=== PATIENT | male | born 1945 | race Caucasian/White ===

== ENCOUNTER 2017-03-19 22:01 | Inpatient (IN) | payer MEDICARE, MEDICAID ==
[~2017-03-19] VITALS: Ht 170.2 cm; Wt 76.3 kg
--- NOTE | 2017-03-19 22:05 | NUR ---
PT BIBRA FROM SNF TO ER BED 09. PER REPORT, HERE FPOR AGITATION, TRYING TO HIT FACILITY STAFF. GOWNED AND PLACED ON MONITOR. NOTED TO BE TACHY GLOST PLACER. PT APPEARS CONFUSED. AWAITING MD ARRIETA.
[2017-03-19] MEDS ORDERED: LACT10SO6 PO (22:22)
[2017-03-19] MEDS ORDERED: PRED5DRO17 EACHEYE (22:22)
[2017-03-19] MEDS ORDERED: NA P133E RC (22:22)
[2017-03-19] MEDS ORDERED: CRAN450C PO (22:22)
[2017-03-19] MEDS ORDERED: DORZ10DR EACHEYE (22:22)
[2017-03-19] MEDS ORDERED: VITA1CAP9 PO (22:22)
[2017-03-19] MEDS ORDERED: BISA10SU8 PO (22:22)
[2017-03-19] MEDS ORDERED: IBUP-51 PO (22:22)
[2017-03-19] MEDS ORDERED: DOCU-270 PO (22:22)
[2017-03-19] MEDS ORDERED: TAMS-12 PO (22:22)
[2017-03-19] MEDS ORDERED: MAGN400O6 PO (22:22)
[2017-03-19] MEDS ORDERED: MULT1TAB11 PO (22:22)
[2017-03-19] MEDS ORDERED: QUET25TA PO (22:22)
[2017-03-19] MEDS ORDERED: ENOX80DI SQ (22:22)
[2017-03-19] MEDS ORDERED: CHOL100040 PO (22:22)
[2017-03-19] MEDS ORDERED: RIFA550T PO (22:22)
--- NOTE | 2017-03-19 22:25 | NUR ---
DIRECTOR SHOPPER MARKETING AT BEDSIDE FOR BLOOD DRAW.
[2017-03-19 22:40] LABS: BASOPHILS % (AUTO) 0.5 % (0.0-2.0); EOSINOPHILS # (AUTO) 0.1 /CMM (0.0-0.7); EOSINOPHILS % (AUTO) 2.4 % (0.0-6.0); HEMATOCRIT 37 % (39-51); HEMOGLOBIN 12.6 g/dL (13.5-17.5); LYMPHOCYTES # (AUTO) 1.8 /CMM (0.8-4.8); LYMPHOCYTES % (AUTO) 30.8 % (20.0-44.0); MEAN CORPUSCULAR HEMOGLOBIN 32 PG (26.0-33.0); MEAN CORPUSCULAR HGB CONC 34 g/dl (31.0-36.0); MEAN CORPUSCULAR VOLUME 93 fL (80-96); MONOCYTES # (AUTO) 0.5 /CMM (0.1-1.30); MONOCYTES % (AUTO) 8.8 % (2.0-12.0); NEUTROPHILS # (AUTO) 3.3 /CMM (1.8-8.9); NEUTROPHILS % (AUTO) 57.5 % (43.0-81.0); PLATELET COUNT (AUTO) 198 /CMM (150-450); WHITE BLOOD COUNT (AUTO) 5.8 K/uL (4.3-11.0)
--- NOTE | 2017-03-19 22:48 | NUR ---
DR STILL AT BEDSIDE FOR EVAL.
--- NOTE | 2017-03-19 22:50 | NUR ---
UNABLE TO PROVIDE URINE SAMPLE AT THIS TIME. NO IN AND OUT PER DR STILL.
[2017-03-19 22:51] LABS: CALCIUM, SERUM 8.6 mg/dL (8.5-10.1); CARBON DIOXIDE 27 mmol/L (21-32); CHLORIDE 105 mmol/L (98-107); CREATININE 0.8 mg/dL (0.6-1.3); GLUCOSE 110 mg/dL (74-106); POTASSIUM 4.1 mmol/L (3.5-5.1); SODIUM SERUM 142 mmol/L (136-145); UREA NITROGEN, BLOOD 9 mg/dL (7-18)
[2017-03-19 22:53] LABS: SERUM AMMONIA 14 umol/L (11-32)
[2017-03-19 22:56] LABS: INR 0.96 (0.87-1.13); PROTHROMBIN TIME 10.3 SECS (9.5-12.7)
[2017-03-19 22:59] LABS: TROPONIN I < 0.017 ng/mL (0.00-0.056)
[2017-03-19 23:00] LABS: ACETAMINOPHEN 0 ug/ml (10-30); ALCOHOL, BLOOD < 3 mg/dL (0-0); SALICYLATE < 0.2 mg/dL (2.8-20.0)
[2017-03-19 23:27] LABS: ALANINE AMINOTRANSFERASE 72 U/L (12-78); ALBUMIN 3.1 g/dL (3.4-5.0); ALKALINE PHOSPHATASE 200 U/L (46-116); ASPARTATE AMINOTRANSFERASE 55 U/L (15-37); BILIRUBIN,DIRECT 0.5 mg/dL (0.0-0.2); BILIRUBIN,TOTAL 0.7 mg/dL (0.2-1.0); TOTAL PROTEIN, SERUM 7.6 g/dL (6.4-8.2)
[2017-03-20] MEDS ORDERED: MORPHINE SULFATE INJ 4 MG/ML DISP.SYRIN ONE ×2 (00:51→01:56)
[2017-03-20] MEDS ORDERED: ONDANSETRON 4 MG TAB.RAPDIS ONE (00:52)
--- NOTE | 2017-03-20 01:08 | NUR ---
REPORT TO CHARGE NURSE JING FOR SHANA.
[2017-03-20] MEDS ORDERED: MORPHINE SULFATE INJ 2 MG/ML DISP.SYRIN SQ ONE (01:30)
[2017-03-20] MEDS ORDERED: ONDANSETRON 4 MG TAB.RAPDIS SL ONE (01:30)
[2017-03-20] MEDS ORDERED: HALOPERIDOL LACTATE INJ 5 MG/ML VIAL ONE (01:32)
[2017-03-20] MEDS ORDERED: ONDANSETRON HCL/PF 4 MG/2 ML VIAL ONE (01:56)
[2017-03-20] MEDS ORDERED: HALOPERIDOL LACTATE INJ 5 MG/ML VIAL IM ONE (02:00)
[2017-03-20] MEDS ORDERED: MORPHINE SULFATE INJ 2 MG/ML DISP.SYRIN IV ONE (02:30)
[2017-03-20] MEDS ORDERED: ONDANSETRON HCL/PF 4 MG/2 ML VIAL IV ONE (02:30)
--- NOTE | 2017-03-20 02:33 | NUR ---
RECEIVED REPORT FROM ER REGARDING NEW ADMISSION, AWAITING ARRIVAL IN UNIT, ROOM IS READY
[2017-03-20 03:22] VITALS: BP 133/70
[2017-03-20 03:30] VITALS: BP 133/82
[2017-03-20] MEDS ORDERED: ENOXAPARIN SODIUM 80 MG/0.8 ML DISP.SYRIN SQ SCH (05:00)
[2017-03-20] MEDS ORDERED: NA PHOS,M-B/NA PHOS,DI-BA 1 EA ENEMA RC PRN (05:00)
[2017-03-20] MEDS ORDERED: PERMETHRIN 5% CRM 60 GM TUBE TP ONE ×2 (05:00→05:20)
[2017-03-20] MEDS ORDERED: MAGNESIUM HYDROXIDE 30 ML UDC PO PRN (05:00)
[2017-03-20] MEDS ORDERED: BISACODYL SUPP (10 MG) 10 MG/SUPP.RECT SUPP.RECT RC PRN (05:00)
[2017-03-20] MEDS ORDERED: ACETAMINOPHEN 325 MG TABLET PO PRN (06:00)
[2017-03-20] MEDS ORDERED: ONDANSETRON HCL/PF 4 MG/2 ML VIAL IVP PRN (06:00)
[2017-03-20] MEDS ORDERED: TEMAZEPAM 15 MG CAPSULE PO PRN (06:00)
[2017-03-20] MEDS ORDERED: Z GUARD REMEDY 2 OZ OINT TP PRN (06:00)
[2017-03-20] MEDS ORDERED: ENOXAPARIN SODIUM 80 MG/0.8 ML DISP.SYRIN SQ ONE (06:21)
--- NOTE | 2017-03-20 06:53 | NUR ---
RN NOTES PT. ALERT AWAKE ALERT NO ACUTE DISTRESS NOTED ,PT. IN STABLE CONDITION , ALL NEEDS ATTENDED AND ANTICIPATED , ALL MEDS GIVEN PER MD ORDERS ,PT . INTERMITTENTLY EPISODE OF COMBATIVE , VITAL SIGNS IN S WNL ,WILL ENDORSE TO NEXT SHIFT FOR CONTINUITY OF CARE .
--- NOTE | 2017-03-20 07:30 | NUR ---
MS RN OPENING NOTE PATIENT IS ALERT AND ORIENTED x1. PERIODS OF CONFUSION. NO PAIN AT THIS TIME. NO SOB OR DISTRESS NOTED. CALL LIGHT WITHIN REACH. SAFETY MEASURES IMPLEMENTED. IV INTACT AND PATENT NO REDNESS OR SWELLING NOTED. PATIENT IS ON SOFT BILATERAL RESTRAINTS, OFFERED NURSING CARE NEEDS. PATIENT EASILY BECOMES AGITATED. WILL REORIENT. WILL CONTINUE TO MONITOR
[2017-03-20 07:48] LABS: BASOPHILS % (AUTO) 0.3 % (0.0-2.0); EOSINOPHILS # (AUTO) 0.2 /CMM (0.0-0.7); EOSINOPHILS % (AUTO) 2.5 % (0.0-6.0); HEMATOCRIT 37 % (39-51); HEMOGLOBIN 12.5 g/dL (13.5-17.5); LYMPHOCYTES # (AUTO) 2.3 /CMM (0.8-4.8); LYMPHOCYTES % (AUTO) 33.2 % (20.0-44.0); MEAN CORPUSCULAR HEMOGLOBIN 32 PG (26.0-33.0); MEAN CORPUSCULAR HGB CONC 34 g/dl (31.0-36.0); MEAN CORPUSCULAR VOLUME 94 fL (80-96); MONOCYTES # (AUTO) 0.5 /CMM (0.1-1.30); MONOCYTES % (AUTO) 7.8 % (2.0-12.0); NEUTROPHILS # (AUTO) 3.9 /CMM (1.8-8.9); NEUTROPHILS % (AUTO) 56.2 % (43.0-81.0); PLATELET COUNT (AUTO) 189 /CMM (150-450); RDW COEFFICIENT OF VARIATION 14.5 (11.5-15.0); RED BLOOD CELL COUNT(AUTO) 3.94 MIL/uL (4.5-6.0); WHITE BLOOD COUNT (AUTO) 6.9 K/uL (4.3-11.0)
[2017-03-20 08:00] VITALS: BP 107/72
[2017-03-20 08:13] LABS: CALCIUM, SERUM 8.6 mg/dL (8.5-10.1); CARBON DIOXIDE 28 mmol/L (21-32); CHLORIDE 106 mmol/L (98-107); CREATININE 0.7 mg/dL (0.6-1.3); GLUCOSE 86 mg/dL (74-106); POTASSIUM 4.5 mmol/L (3.5-5.1); SODIUM SERUM 142 mmol/L (136-145); UREA NITROGEN, BLOOD 8 mg/dL (7-18)
[2017-03-20 08:19] LABS: ALANINE AMINOTRANSFERASE 68 U/L (12-78); ALKALINE PHOSPHATASE 187 U/L (46-116); ASPARTATE AMINOTRANSFERASE 57 U/L (15-37); BILIRUBIN,TOTAL 0.8 mg/dL (0.2-1.0); MAGNESIUM 2.3 mg/dL (1.8-2.4); PHOSPHORUS 3.8 mg/dL (2.5-4.9); TOTAL PROTEIN, SERUM 7.3 g/dL (6.4-8.2)
[2017-03-20 08:26] LABS: CHOLESTEROL 143 mg/dL (<200); HDL CHOLESTEROL 28 mg/dL (40-60); LDL 84 mg/dL (0-99); THYROID STIMULATING HORMONE 0.569 uIU/mL (0.358-3.74); TRIGLYCERIDES 153 mg/dL (30-150)
[2017-03-20] MEDS: PANTOPRAZOLE 40 MG TABLET.DR PO SCH (08:38)
[2017-03-20] MEDS: DORZOLAMIDE OPTH 2% 10 ML BOTTLE EACHEYE SCH ×2 (09:00→16:54)
[2017-03-20] MEDS: prednisoLONE ACETATE 1% SUSP 5 ML BOTTLE EACHEYE SCH (09:00)
[2017-03-20] MEDS: DOCUSATE SODIUM 100 MG CAPSULE PO SCH (09:02)
[2017-03-20] MEDS: MULTIVITAMINS W-MINERALS 1 TAB TABLET PO SCH (09:02)
[2017-03-20] MEDS: QUETIAPINE FUMARATE 25 MG TABLET PO SCH ×2 (09:02→16:49)
[2017-03-20] MEDS: CHOLECALCIFEROL 1,000 UNIT TABLET (VIT D3) PO SCH (09:02)
[2017-03-20] MEDS: LACTULOSE 10 G/15 ML UDC (PYXIS) PO SCH (09:03)
--- NOTE | 2017-03-20 09:34 | NUR ---
PT NOT READY , PT COMBATIVE, RN WILL CALL WHEN READY. PK
[2017-03-20] MEDS ORDERED: VANCOMYCIN 1 GM in IV D5W 250 ML IV SCH (11:30)
[2017-03-20] MEDS ORDERED: FEE PK DOSING 1 MIN EA MC ONE (12:48)
[2017-03-20] MEDS ORDERED: PIPERACILLIN /TAZOBACTAM 4.5 G in IV D5W 50 ML IV SCH (13:00)
--- NOTE | 2017-03-20 13:00 | NUR ---
MS RN NOTE PATIENT UNABLE TO GIVE URINE SAMPLE, ALSO TRIED TO DO STRAIGHT CATH FOR URINE COLLECTION BUT UNABLE TO GET DUE TO PATIENT BECOMING COMBATIVE WITH KICKING AND YELLING. INFORMED CHARGE NURSE WILL ENDORSE TO ASSOCIATE PROFESSOR OF MUSIC NURSE
[2017-03-20] MEDS ORDERED: IV NS 0.9% 250 ML IV ONE (13:06)
[2017-03-20] MEDS ORDERED: IV SET PRIMARY PUMP SET 1 EA INFUS.SET MC ONE (13:06)
[2017-03-20] MEDS ORDERED: SECONDARY IV SET 1 EA INFUS.SET MC ONE (13:06)
[2017-03-20] MEDS: VANCOMYCIN 1 GM in IV D5W 250 ML IV SCH (13:57)
--- NOTE | 2017-03-20 15:04 | NUR ---
WOUND CARE CONSULT: PT PRESENTS WITH RASH TO BACK, CHEST AND ABDOMEN, PRESENT ON ADMISSION. DEFER TO MD FOR RASH. PT ALSO NOTED TO HAVE RED RASH TO INNER THIGHS, PERINEUM AND BUTTOCKS, PRESENT ON ADMISSION. RECOMMENDATIONS MADE FOR BUTTOCK/PERINEAL RASH AND FOR SKIN PROTECTION. DISCUSSED WITH NURSING STAFF. PT ON MICHAEL ISOFLEX LOW AIRLOSS BED. PT COMBATIVE AT TIMES PER NURSING REPORT. PT HAS MULTIPLE DRY ABRASIONS PRESENT ON ADMISSION. WILL SEE PRN. MD IN AGREEMENT WITH PLAN OF CARE. Addendum: 03/20/17 at 1506 by INES PEREZ WNDNU Amended: Links added.
[2017-03-20 16:00] VITALS: BP 103/66
[2017-03-20] MEDS: CLOTRIMAZOLE 1% 15 GM TUBE TP SCH (17:00)
[2017-03-20] MEDS ORDERED: QUETIAPINE FUMARATE 25 MG TABLET PO PRN (17:00)
[2017-03-20] MEDS: PIPERACILLIN /TAZOBACTAM 3.375 G in IV D5W 50 ML IV SCH (17:17)
--- NOTE | 2017-03-20 18:44 | NUR ---
MS RN NOTE PATIENT IS ALERT AND ORIENTED x1. NO PAIN AT THIS TIME. NO SOB OR DISTRESS NOTED. CALL LIGHT WITHIN REACH AT ALL TIMES. SAFETY MEASURES IMPLEMENTED. PERIODS OF CONFUSION, REORIENTABLE. ALL DUE MEDICATION GIVEN ORDERED. IV INTACT AND PATENT NO REDNESS OR SWELLING NOTED. ON SOFT BILATERAL RESTRAINTS, OFFERED NURSING CARE NEEDS FREQUENTLY AND REPOSITIONED. WILL ENDORSE TO PAINT SPRAY INSPECTOR NURSE
--- NOTE | 2017-03-20 19:30 | NUR ---
MS RN INITIAL NOTE RECEIVED PT AWAKE, CONFUSED AND ATTEMPTING TO GET OUT OF BED, HE IS ON BILATERAL SOFT WRIST RESTRAINTS, ALL NEEDS ANTICIPATED AND FREQUENT ROUNDS WILL BE DONE TO ENSURE PT'S COMFORT AND SAFETY, PT IS CLEAN/DRY AND COMFORTABLE, SAFETY MEASURES WILL BE MAINTAINED AT ALL TIMES, WILL CONTINUE TO MONITOR FREQUENTLY.
[2017-03-20 20:00] VITALS: BP 103/49
[2017-03-20] MEDS: TAMSULOSIN 0.4 MG CAP.SR.24H PO SCH (21:43)
[2017-03-20] MEDS: ENOXAPARIN SODIUM 80 MG/0.8 ML DISP.SYRIN SQ SCH (21:47)
--- NOTE | 2017-03-20 22:30 | NUR ---
PT PULLED HIS IV ACCESS OUT, NEW IV INSERTED ON RIGHT FOREARM #22G, INTACT AND PATENT, WILL CONTINUE TO MONITOR FREQUENTLY.
[2017-03-21] MEDS ORDERED: IV SET PRIMARY PUMP SET 1 EA INFUS.SET MC ONE (00:51)
[2017-03-21] MEDS: PIPERACILLIN /TAZOBACTAM 3.375 G in IV D5W 50 ML IV SCH ×4 (00:52→17:42)
[2017-03-21] MEDS: VANCOMYCIN 1 GM in IV D5W 250 ML IV SCH ×2 (01:26→13:59)
--- NOTE | 2017-03-21 07:24 | NUR ---
MS RN CLOSING NOTE PT REMAINED STABLE DURING AUDIO VISUAL DESIGN ENGINEER, EPISODES OF SEVERE CONFUSION THROUGHOUT NIGHT, ATTEMPTS TO GET OFF BED, SAFETY WAS MAINTAINED AT ALL TIMES, WILL ENDORSE TO INCOMING NURSE FOR SHANA.
[2017-03-21] MEDS: PANTOPRAZOLE 40 MG TABLET.DR PO SCH (07:30)
[2017-03-21 08:00] VITALS: BP 134/71
--- NOTE | 2017-03-21 08:00 | NUR ---
MS RN RECEIVED PATIENT, ORIENTED X1, VERY CONFUSED, CLIMBING OUT OF BED, ON RESTRAIN,BILATERAL ARMS, DENIES PAIN AT THIS TIME, GENERALIZED RASHES NOTED,ALL NEEDS ATTENDED.
[2017-03-21 08:56] LABS: CARBON DIOXIDE 28 mmol/L (21-32); CHLORIDE 103 mmol/L (98-107); CREATININE 0.9 mg/dL (0.6-1.3); GLUCOSE 99 mg/dL (74-106); POTASSIUM 4.1 mmol/L (3.5-5.1); SODIUM SERUM 140 mmol/L (136-145); UREA NITROGEN, BLOOD 7 mg/dL (7-18)
[2017-03-21] MEDS: prednisoLONE ACETATE 1% SUSP 5 ML BOTTLE EACHEYE SCH (09:00)
[2017-03-21] MEDS: LACTULOSE 10 G/15 ML UDC (PYXIS) PO SCH (09:00)
[2017-03-21] MEDS: DORZOLAMIDE OPTH 2% 10 ML BOTTLE EACHEYE SCH ×2 (09:00→17:44)
[2017-03-21] MEDS: CHOLECALCIFEROL 1,000 UNIT TABLET (VIT D3) PO SCH (09:00)
[2017-03-21] MEDS: DOCUSATE SODIUM 100 MG CAPSULE PO SCH (09:00)
[2017-03-21] MEDS: MULTIVITAMINS W-MINERALS 1 TAB TABLET PO SCH (09:00)
[2017-03-21] MEDS: QUETIAPINE FUMARATE 25 MG TABLET PO SCH ×2 (09:00→17:42)
--- NOTE | 2017-03-21 09:00 | NUR ---
MS RN PATIENT REFUSED PO MEDS, WILL MONITOR PATIENT.
--- NOTE | 2017-03-21 11:00 | NUR ---
MS RN CAN NOT DO ST SCAN, MRI AND HIDASCAN,DUE TO AGITATION.
[2017-03-21] MEDS: ENOXAPARIN SODIUM 80 MG/0.8 ML DISP.SYRIN SQ SCH ×2 (13:59→21:33)
--- NOTE | 2017-03-21 14:00 | NUR ---
MS RN PATIENT KICKED JASSON MARTI 3MG GIVEN, HELPED A LITTLE.
--- NOTE | 2017-03-21 14:01 | NUR ---
MRCP APPROVED BUT UNABLE TO GET IT DONE BECAUSE IS COMBATIVE,MOVING AND UNABLE TO FOLLOW BREATHING INSTRUCTION NURSE NICKO IS AWARE.
[2017-03-21] MEDS: CLOTRIMAZOLE 1% 15 GM TUBE TP SCH ×2 (14:08→17:43)
[2017-03-21] MEDS: ZIPRASIDONE MESYLATE 20 MG/VIAL VIAL IM PRN (15:10)
[2017-03-21 16:00] VITALS: BP 130/79
--- NOTE | 2017-03-21 16:00 | NUR ---
MS RN SISTER ON BEDSIDE,PATIENT IS BEHAVE, NO DISTRESS NOTED AND COMPLAINT THIS TIME.
--- NOTE | 2017-03-21 18:46 | NUR ---
MS RN ON BED, NO DISTRESS NOTED,ALL NEEDS ATTENDED.
--- NOTE | 2017-03-21 19:05 | NUR ---
RN NOTE RECEIVED REPORT. PT AAOX1, CONFUSED, APPEARS CALM. NO S/S OR C/O ANY PAIN OR DISCOMFORT. R FA INTACT AND PATENT. 1:1 AT BEDSIDE. SAFETY AND COMFORT MEASURES RENDERED. WILL CONT TO MONITOR.
[2017-03-21 20:00] VITALS: BP 93/57
--- NOTE | 2017-03-21 20:20 | NUR ---
RN NOTE STEPHIE MCKEON IN TO SEE PATIENT. NO NEW ORDERS AT THIS TIME.
[2017-03-21] MEDS: TAMSULOSIN 0.4 MG CAP.SR.24H PO SCH ×2 (21:33→21:37)
[2017-03-22] VITALS: BP 110/60
[2017-03-22] MEDS: PIPERACILLIN /TAZOBACTAM 3.375 G in IV D5W 50 ML IV SCH ×5 (00:11→23:35)
[2017-03-22] MEDS: VANCOMYCIN 1 GM in IV D5W 250 ML IV SCH ×2 (01:42→12:54)
[2017-03-22] MEDS ORDERED: ZIPRASIDONE MESYLATE 20 MG/VIAL VIAL IM ONE (02:34)
[2017-03-22] MEDS: ZIPRASIDONE MESYLATE 20 MG/VIAL VIAL IM PRN ×3 (04:38→21:48)
--- NOTE | 2017-03-22 04:40 | NUR ---
RN NOTE PT APPEARS AGITATED. KICKING AND SCREAMING. PRN EMELI GIVEN - WILL MONITOR FOR EFFECTIVENESS.
--- NOTE | 2017-03-22 06:45 | NUR ---
RN NOTE NO SIGNIFICANT CHANGES OVERNIGHT. PT APPEARS CALM AT THIS TIME, NO S/S OF ANY DISTRESS. 1:1 SITTER AT THE BEDSIDE. IV INTACT AND PATENT TOLERATING ABX WELL. ALL NEEDS ATTENED TO, SAFETY AND COMFORT MEASURES RENDERED. WILL F/U WITH DAY SHIFT FOR SHANA.
--- NOTE | 2017-03-22 07:20 | NUR ---
MS RN NOTE: RECEIVED PATIENT WHILE RESTING IN BED, A/OX 1. PATIENT BREATHING EVEN AND UNLABORED ON ROOM AIR. NO SOB, NO DISTRESS/DISCOMFORT. PATIENT IS CALM AND SLEEPING AT THIS TIME. ALL NEEDS ATTENDED TO, SAFETY MEASURES IN PLACE, WILL CONTINUE TO MONITOR
[2017-03-22 08:00] VITALS: BP 126/70
[2017-03-22 08:22] LABS: CALCIUM, SERUM 8.9 mg/dL (8.5-10.1); CARBON DIOXIDE 24 mmol/L (21-32); CHLORIDE 103 mmol/L (98-107); CREATININE 0.9 mg/dL (0.6-1.3); GLUCOSE 98 mg/dL (74-106); POTASSIUM 4.2 mmol/L (3.5-5.1); SODIUM SERUM 137 mmol/L (136-145); UREA NITROGEN, BLOOD 9 mg/dL (7-18)
[2017-03-22] MEDS: prednisoLONE ACETATE 1% SUSP 5 ML BOTTLE EACHEYE SCH (08:42)
[2017-03-22] MEDS: MULTIVITAMINS W-MINERALS 1 TAB TABLET PO SCH (08:43)
[2017-03-22] MEDS: QUETIAPINE FUMARATE 25 MG TABLET PO SCH ×3 (08:43→21:44)
[2017-03-22] MEDS: DORZOLAMIDE OPTH 2% 10 ML BOTTLE EACHEYE SCH ×2 (08:43→17:22)
[2017-03-22] MEDS: CHOLECALCIFEROL 1,000 UNIT TABLET (VIT D3) PO SCH (08:43)
[2017-03-22] MEDS: PANTOPRAZOLE 40 MG TABLET.DR PO SCH (08:43)
[2017-03-22] MEDS: DOCUSATE SODIUM 100 MG CAPSULE PO SCH (08:43)
[2017-03-22] MEDS: LACTULOSE 10 G/15 ML UDC (PYXIS) PO SCH (08:43)
[2017-03-22] MEDS: ENOXAPARIN SODIUM 80 MG/0.8 ML DISP.SYRIN SQ SCH ×2 (08:44→21:16)
[2017-03-22] MEDS: CLOTRIMAZOLE 1% 15 GM TUBE TP SCH ×2 (08:45→17:21)
--- NOTE | 2017-03-22 08:57 | NUR ---
PATIENT UNCOOPERATIVE. RN WILL CALL WHEN PATIENT IS READY FOR CT HEAD.
--- NOTE | 2017-03-22 12:00 | NUR ---
MS RN NOTE: PATIENT REMAINS CALM. NO COMPLICATIONS NOTED, WILL CONTINUE TO MONITOR.
[2017-03-22 16:00] VITALS: BP 119/76
--- NOTE | 2017-03-22 17:30 | NUR ---
MS RN NOTE: PATIENT HAS GOTTEN VERY AGITATED, ATTEMPTED TO KICK HOSPITAL STAFF AND CLIMB OUT OF BED. PRN DOSE OF GEODON ADMINISTERED IM. WILL CONTINUE TO MONITOR.
--- NOTE | 2017-03-22 18:15 | NUR ---
MS RN NOTE: PATIENT CONTINUES TO BE AGITATED, HOSTILE, AND COMBATIVE. PATIENT HAS PULLED OUT HIS IV. NO OTHER ACCESS AVAILABLE, REFUSING TO ALLOW NEW IV INSERTION. WILL CONTINUE TO MONITOR AND ATTEMPT AT ANOTHER TIME.
[2017-03-22] MEDS ORDERED: IV SET PRIMARY PUMP SET 1 EA INFUS.SET MC ONE ×2 (18:26→21:14)
--- NOTE | 2017-03-22 18:50 | NUR ---
MS RN NOTE: PATIENT IS CALM AT THIS TIME. BREATHING EVEN AND UNLABORED ON ROOM AIR. NO SOB, NO DISTRESS. NEW IV INSERTED ON LEFT FOREARM, 22 GAUGE. PATIENTS NEEDS ATTENDED TO, SAFETY MEASURES IN PLACE, WILL ENDORSE TO METALLURGICAL LAB TECHNICIAN FOR SHANA.
--- NOTE | 2017-03-22 19:30 | NUR ---
RN NOTES RECEIVED IN BED AWAKE, AO X 1, NO ACUTE DISTRESS NOTED. NO SIGNS OF PAIN NOTED. IV SITE PATENT, INTACT; FLUSHED. BILATERAL WRIST RESTRAINT IN PLACE; RELEASED FOR ROM AND SKIN CHECK THEN RE-APPLIED. ON LOW BED WITH BILATERAL SIDE RAILS UP. CONTACT ISOLATION MAINTAINED. WILL CONTINUE TO MONITOR.
[2017-03-22 20:00] VITALS: BP 142/64
[2017-03-22] MEDS: TAMSULOSIN 0.4 MG CAP.SR.24H PO SCH ×2 (21:13→21:44)
[2017-03-23] MEDS ORDERED: IV NS 0.9% 250 ML IV ONE (02:09)
[2017-03-23] MEDS: ZIPRASIDONE MESYLATE 20 MG/VIAL VIAL IM PRN ×2 (02:46→09:33)
[2017-03-23] MEDS: PIPERACILLIN /TAZOBACTAM 3.375 G in IV D5W 50 ML IV SCH ×3 (05:22→17:17)
[2017-03-23] MEDS ORDERED: VANCOMYCIN 1 GM in IV D5W 250 ML IV SCH (06:00)
--- NOTE | 2017-03-23 06:12 | NUR ---
RN NOTES PATIENT AWAKE. RESPIRATIONS EVEN. NO SIGNS OF PAIN NOTED. DUE MEDS GIVEN WITH NO ASE NOTED. NEEDS ATTENDED. SAFETY PRECAUTIONS AND COMFORT MEASURES IN PLACE. WILL GIVE REPORT TO DAY SHIFT FOR CONTINUITY OF CARE.
--- NOTE | 2017-03-23 07:15 | NUR ---
MS RN NOTE: RECEIVED PATIENT WHILE RESTING IN BED, A/OX 1. PATIENT BREATHING EVEN AND UNLABORED ON ROOM AIR. NO SOB. BILATERAL WRIST RESTRAINTS IN PLACE, NO COMPLICATIONS NOTED. PATIENT'S NEEDS ATTENDED TO, SAFETY MEASURES IN PLACE, WILL CONTINUE TO MONITOR.
[2017-03-23 08:00] VITALS: BP 121/64
[2017-03-23] MEDS: MULTIVITAMINS W-MINERALS 1 TAB TABLET PO SCH (08:04)
[2017-03-23] MEDS: CHOLECALCIFEROL 1,000 UNIT TABLET (VIT D3) PO SCH (08:04)
[2017-03-23] MEDS: DOCUSATE SODIUM 100 MG CAPSULE PO SCH (08:05)
[2017-03-23] MEDS: PANTOPRAZOLE 40 MG TABLET.DR PO SCH (08:05)
[2017-03-23] MEDS: ENOXAPARIN SODIUM 80 MG/0.8 ML DISP.SYRIN SQ SCH (08:05)
[2017-03-23] MEDS: LACTULOSE 10 G/15 ML UDC (PYXIS) PO SCH (08:05)
[2017-03-23] MEDS: DORZOLAMIDE OPTH 2% 10 ML BOTTLE EACHEYE SCH ×2 (08:06→17:16)
[2017-03-23] MEDS: CLOTRIMAZOLE 1% 15 GM TUBE TP SCH ×2 (08:06→17:15)
[2017-03-23] MEDS: prednisoLONE ACETATE 1% SUSP 5 ML BOTTLE EACHEYE SCH (08:06)
[2017-03-23 08:23] LABS: CALCIUM, SERUM 8.8 mg/dL (8.5-10.1); CARBON DIOXIDE 25 mmol/L (21-32); CHLORIDE 103 mmol/L (98-107); CREATININE 0.8 mg/dL (0.6-1.3); GLUCOSE 93 mg/dL (74-106); MAGNESIUM 2.3 mg/dL (1.8-2.4); PHOSPHORUS 3.3 mg/dL (2.5-4.9); POTASSIUM 3.8 mmol/L (3.5-5.1); SODIUM SERUM 138 mmol/L (136-145); UREA NITROGEN, BLOOD 7 mg/dL (7-18)
[2017-03-23 08:34] LABS: BASOPHILS % (AUTO) 0.5 % (0.0-2.0); EOSINOPHILS # (AUTO) 0.2 /CMM (0.0-0.7); EOSINOPHILS % (AUTO) 3.6 % (0.0-6.0); HEMATOCRIT 41 % (39-51); LYMPHOCYTES # (AUTO) 1.8 /CMM (0.8-4.8); LYMPHOCYTES % (AUTO) 35.2 % (20.0-44.0); MEAN CORPUSCULAR HEMOGLOBIN 32 PG (26.0-33.0); MEAN CORPUSCULAR HGB CONC 34 g/dl (31.0-36.0); MEAN CORPUSCULAR VOLUME 94 fL (80-96); MONOCYTES # (AUTO) 0.5 /CMM (0.1-1.30); MONOCYTES % (AUTO) 9.3 % (2.0-12.0); NEUTROPHILS # (AUTO) 2.6 /CMM (1.8-8.9); NEUTROPHILS % (AUTO) 51.4 % (43.0-81.0); PLATELET COUNT (AUTO) 175 /CMM (150-450); RDW COEFFICIENT OF VARIATION 14.3 (11.5-15.0); WHITE BLOOD COUNT (AUTO) 5.1 K/uL (4.3-11.0)
[2017-03-23] MEDS ORDERED: QUETIAPINE FUMARATE 25 MG TABLET PO SCH (09:00)
--- NOTE | 2017-03-23 09:33 | NUR ---
MS RN NOTE: PATIENT HAS BECOME AGITATED AND AGGRESSIVE. UNCOOPERATIVE WITH OUTSIDE MAINTENANCE WORKER, DOSE OF GEODON ADMINISTERED IM, WILL CONTINUE TO MONITOR.
--- NOTE | 2017-03-23 13:45 | NUR ---
MS RN NOTE: CRISIS TEAM EVALU[place] [address] HOLD. RECOMMENDATION TO TRANSFER PATIENT TO GPS. WILL CONTINUE TO MONITOR.
--- NOTE | 2017-03-23 16:15 | NUR ---
MS RN NOTE: PHOTO'S OF SKIN ISSUES TAKEN AND PLACED IN CHART. ANTICIPATING DISCHARGE TO GPS.
[2017-03-23] MEDS ORDERED: LACTOBACILLUS RHAMNOSUS GG 1 EACH CAP.SPRINK PO SCH (17:00)
--- NOTE | 2017-03-23 17:15 | NUR ---
MS RN NOTE: PATIENT HAS BECOME SLIGHTLY ANXIOUS AT THE IDEA OF TRANSFERRING TO GPS. PRN DOSE OF SEROQUEL ADMINISTERED. PATIENT'S RESTRAINTS HAVE BEEN REMOVED AT THIS TIME, PATIENT IS NOT PULLING IV AT THIS TIME. EXIT CARE COMPLETED FOR PATIENT, ALL FORMS COMPLETED. DISCHARGE TEACHING PROVIDED. REPORT GIVEN TO CRYSTAL ALANIZ IN GPS. PATIENT TO BE TRANSFERRED TO GPS ONCE LAST DOSE OF ZOSYN IS COMPLETED.
--- NOTE | 2017-03-23 18:10 | NUR ---
MS RN NOTE: PATIENTS FINAL ZOSYN COMPLETED. ALL NEEDS ATTENDED TO, IV REMOVED, ID BAND REMOVED. PATIENT TRANSFERRED TO GPS VIA BED. RNCRYSTAL HANDED REPORT.
[2017-03-23] MEDS ORDERED: PANT40TA4 PO (18:55)
[2017-03-23] MEDS ORDERED: TEMA7.5C12 PO (18:55)
[2017-03-23] MEDS ORDERED: CHOL100044 PO (18:55)
[2017-03-23] MEDS ORDERED: ACET-868 PO (18:55)
[2017-03-23] MEDS ORDERED: ZIPR20VI IM (18:55)
[2017-03-23] MEDS ORDERED: ALLA266C2 TP (18:55)
[2017-03-23] MEDS ORDERED: QUET25TA PO ×2 (18:55)
[2017-03-23] MEDS ORDERED: CLOT15CR35 TP (18:55)
[2017-03-23] MEDS ORDERED: LACT1CAP72 PO (18:55)
== END 2017-03-23 18:10 | DRG 444 ==
LOC: ER 22:07 → MED 03-20 02:17
PROVIDERS: ADMIT Internal Medicine; ATTEND Internal Medicine
DX: K80.00 Calculus of gallbladder with acute cholecystitis without obstruction (principal); G93.40 Encephalopathy, unspecified; I82.403 Acute embolism and thrombosis of unspecified deep veins of lower extremity, bilateral; N40.0 Benign prostatic hyperplasia without lower urinary tract symptoms; E11.9 Type 2 diabetes mellitus without complications; H40.9 Unspecified glaucoma; F03.90 Unspecified dementia, unspecified severity, without behavioral disturbance, psychotic disturbance, mood disturbance, and anxiety; F29 Unspecified psychosis not due to a substance or known physiological condition; F39 Unspecified mood [affective] disorder; E88.09 Other disorders of plasma-protein metabolism, not elsewhere classified; K74.60 Unspecified cirrhosis of liver; Z87.440 Personal history of urinary (tract) infections; Z87.891 Personal history of nicotine dependence; F20.9 Schizophrenia, unspecified; R74.0 Nonspecific elevation of levels of transaminase and lactic acid dehydrogenase [LDH]; I44.0 Atrioventricular block, first degree; Z79.899 Other long term (current) drug therapy; Z86.718 Personal history of other venous thrombosis and embolism; B19.20 Unspecified viral hepatitis C without hepatic coma
CPT/HCPCS: 36415; 71010-TC; 76705-TC; 80048-TC; 80053-TC; 80061-TC; 80076-TC; 80202-TC; 82140-TC; 82962-TC; 83690-TC; 83735-TC; 84100-TC; 84443-TC; 84484-TC; 85025-TC; 85730-TC; 87081-TC; 93970-TC; A4606; A6403; G0480; J1630; J1650; J2270; J2405; J2543; J3370; J3486; J7050; J7060; Q0162; Z7610

== ENCOUNTER 2017-03-23 18:40 | Inpatient (IN) | payer MEDICARE, MEDICAID ==
[~2017-03-23] VITALS: Ht 170.2 cm; Wt 86.2 kg
[~2017-03-23 18:40] MED LIST: BISA10SU8 PO; CHOL100040 PO; CRAN450C PO; DOCU-270 PO; DORZ10DR EACHEYE; ENOX80DI SQ; IBUP-51 PO; LACT10SO6 PO; MAGN400O6 PO; MULT1TAB11 PO; NA P133E RC; PRED5DRO17 EACHEYE; QUET25TA PO; RIFA550T PO; TAMS-12 PO; VITA1CAP9 PO
[2017-03-23 18:51] VITALS: BP 100/58
[2017-03-23] MEDS ORDERED: TEMA7.5C12 PO (18:55)
[2017-03-23] MEDS ORDERED: CLOT15CR35 TP (18:55)
[2017-03-23] MEDS ORDERED: QUET25TA PO ×2 (18:55)
[2017-03-23] MEDS ORDERED: ALLA266C2 TP (18:55)
[2017-03-23] MEDS ORDERED: LACT1CAP72 PO (18:55)
[2017-03-23] MEDS ORDERED: ACET-868 PO (18:55)
[2017-03-23] MEDS ORDERED: CHOL100044 PO (18:55)
[2017-03-23] MEDS ORDERED: PANT40TA4 PO (18:55)
[2017-03-23] MEDS ORDERED: ZIPR20VI IM (18:55)
[2017-03-23] MEDS ORDERED: MAGNESIUM HYDROXIDE 30 ML UDC PO PRN (19:00)
[2017-03-23] MEDS ORDERED: ACETAMINOPHEN 325 MG TABLET PO PRN (19:00)
[2017-03-23] MEDS ORDERED: MAG HYDROX/AL HYDROX/SIMETH 30 ML UDC PO PRN (19:00)
--- NOTE | 2017-03-23 19:04 | NUR ---
DR. MCKEON NOTIFIED ABOUT THE ADMISSION
--- NOTE | 2017-03-23 19:30 | NUR ---
GPS/RN NOTE: ADMITTED FROM MED-SURG FLOOR AROUND 1850 DUE TO GD. PATIENT ADMITTED ON 5150 HOLD FOR GD. PER HOLD PATIENT WAS AGITATED, AGGRESSIVE, AGGRESSIVE NON- REDIRECTABLE, CONFUSED AND DISORGANIZED. THE 5150 WAS REVIEWED AND APPEARS TO REFLECT THE PRESENTATION OF THE PATIENT. UPON FACE TO FACE, PATIENT WAS CONFUSED, DISORGANIZED, AGITATED, DISORIENTED. PATIENT SHOWS NO S/S OF PAIN AT THIS TIME. NO APPARENT DISTRESS NOTED. RESPIRATION EVEN, BREATHING PATTERN NON-LABORED. AWAKE, ALERT, ORIENTED X1, COOPERATIVE. PATIENT WAS PLACED IN BED COMFORTABLY. POOR INSIGHT, CONFUSED. SKIN SHOWS GENERALIZED RASHES ALL OVER THE BODY. BELONGINGS INVENTORIED AND CHECKED FOR CONTRABAND. VALUABLES CHECKED IN TO SAFE. SISTER OF THE PATIENT, LELAND WAS NOTIFIED OF ADMISSION TO THE UNIT. PATIENT'S BED LOCKED AND PLACED ON LOWEST POSITION. WILL CONTINUE TO MONITOR Q 15 MINS. TO MAINTAIN SAFETY.
[2017-03-23 20:00] VITALS: BP 89/56
[2017-03-23] MEDS ORDERED: ZIPRASIDONE MESYLATE 20 MG/VIAL VIAL IM ONE ×2 (22:51→23:00)
--- NOTE | 2017-03-23 23:19 | NUR ---
GPS/RN NOTE: PATIENT YELLING, SCREAMING, AGITATED, GEODON 5 MG IM ADMINISTERED ORDERED.
--- NOTE | 2017-03-24 07:35 | NUR ---
GPS/RN NOTE: PAGED DR. STEPHEN, RE: MED RECON NEEDS TO BE DONE.
[2017-03-24 08:03] VITALS: BP 114/72
[2017-03-24] MEDS ORDERED: MAGNESIUM HYDROXIDE 30 ML UDC PO PRN (10:30)
[2017-03-24] MEDS ORDERED: IBUPROFEN 200 MG TABLET PO PRN (10:30)
[2017-03-24] MEDS ORDERED: ACETAMINOPHEN 325 MG TABLET PO PRN (10:30)
[2017-03-24] MEDS ORDERED: Z GUARD REMEDY 2 OZ OINT TP PRN (10:30)
[2017-03-24] MEDS ORDERED: Medication Not On Formulary EA (Cranberry Fruit Concentrate (Cranberry) 450 MG) PO SCH (10:30)
[2017-03-24] MEDS ORDERED: NA PHOS,M-B/NA PHOS,DI-BA 1 EA ENEMA RC PRN (10:30)
[2017-03-24] MEDS ORDERED: APIXABAN 5 MG TABLET PO SCH (10:30)
[2017-03-24] MEDS ORDERED: BISACODYL SUPP (10 MG) 10 MG/SUPP.RECT SUPP.RECT RC PRN (10:30)
[2017-03-24] MEDS: RIVAROXABAN 15 MG TABLET PO SCH ×2 (12:04→17:09)
[2017-03-24] MEDS: TAMSULOSIN 0.4 MG CAP.SR.24H PO SCH ×2 (12:06→21:14)
[2017-03-24] MEDS: PANTOPRAZOLE 40 MG TABLET.DR PO SCH (12:06)
[2017-03-24] MEDS: RIFAXIMIN 550 MG TABLET PO SCH ×2 (12:06→17:11)
[2017-03-24] MEDS: CLOTRIMAZOLE 1% 15 GM TUBE TP SCH ×2 (12:06→17:10)
[2017-03-24] MEDS: DORZOLAMIDE OPTH 2% 10 ML BOTTLE EACHEYE SCH ×2 (12:07→17:12)
[2017-03-24] MEDS: CHOLECALCIFEROL 1,000 UNIT TABLET (VIT D3) PO SCH (12:07)
[2017-03-24] MEDS: LACTOBACILLUS RHAMNOSUS GG 1 EACH CAP.SPRINK PO SCH ×2 (12:07→17:07)
[2017-03-24] MEDS: DOCUSATE SODIUM 100 MG CAPSULE PO SCH (12:07)
[2017-03-24] MEDS: prednisoLONE ACETATE 1% SUSP 5 ML BOTTLE EACHEYE SCH (12:08)
[2017-03-24] MEDS: LACTULOSE 10 G/15 ML UDC (PYXIS) PO SCH (12:08)
[2017-03-24 16:12] VITALS: BP 118/57
[2017-03-24 20:00] VITALS: BP 131/87
[2017-03-24 20:30] VITALS: BP 131/81
[2017-03-24] MEDS: QUETIAPINE FUMARATE 25 MG TABLET PO SCH (21:14)
[2017-03-25 08:00] VITALS: BP 118/72
[2017-03-25] MEDS: PANTOPRAZOLE 40 MG TABLET.DR PO SCH (08:36)
[2017-03-25] MEDS: OXCARBAZEPINE 150 MG TABLET PO SCH ×2 (08:36→17:28)
[2017-03-25] MEDS: LACTULOSE 10 G/15 ML UDC (PYXIS) PO SCH (08:36)
[2017-03-25] MEDS: MULTIVIT, IRON, MIN NO. 8, FA 1 TAB TABLET PO SCH (08:36)
[2017-03-25] MEDS: DOCUSATE SODIUM 100 MG CAPSULE PO SCH (08:36)
[2017-03-25] MEDS: VIT B CMPLX 3/FA/VIT C/BIOTIN 1 TAB TABLET PO SCH (08:36)
[2017-03-25] MEDS: CLOTRIMAZOLE 1% 15 GM TUBE TP SCH ×2 (08:37→17:35)
[2017-03-25] MEDS: RIFAXIMIN 550 MG TABLET PO SCH ×2 (08:37→17:36)
[2017-03-25] MEDS: CHOLECALCIFEROL 1,000 UNIT TABLET (VIT D3) PO SCH (08:37)
[2017-03-25] MEDS: LACTOBACILLUS RHAMNOSUS GG 1 EACH CAP.SPRINK PO SCH ×2 (08:39→17:28)
[2017-03-25] MEDS: RIVAROXABAN 15 MG TABLET PO SCH ×2 (08:40→17:29)
[2017-03-25] MEDS: DORZOLAMIDE OPTH 2% 10 ML BOTTLE EACHEYE SCH ×2 (09:06→17:35)
[2017-03-25] MEDS: prednisoLONE ACETATE 1% SUSP 5 ML BOTTLE EACHEYE SCH (09:06)
[2017-03-25 16:00] VITALS: BP 109/64
[2017-03-25 20:20] VITALS: BP 102/59
[2017-03-25] MEDS: QUETIAPINE FUMARATE 25 MG TABLET PO SCH (21:38)
[2017-03-25] MEDS: TAMSULOSIN 0.4 MG CAP.SR.24H PO SCH (21:38)
--- NOTE | 2017-03-25 22:15 | NUR ---
GPS RN: DR. MCKEON CAME TO THE UNIT TO SEE THE PATIENT. UPDATED REGARDING PATIENT BEHAVIOR AND CONDITION. INFORMED REGARDING PATIENT'S SISTER LELAND WANTING TO TALK TO HER. DR. MCKEON ACKNOWLEDGED SAID REQUEST. WILL CONTINUE TO MONITOR PATIENT FOR MOOD, SAFETY AND BEHAVIOR.
[2017-03-26 08:00] VITALS: BP 114/70
[2017-03-26] MEDS: LACTULOSE 10 G/15 ML UDC (PYXIS) PO SCH (09:37)
[2017-03-26] MEDS: prednisoLONE ACETATE 1% SUSP 5 ML BOTTLE EACHEYE SCH (09:38)
[2017-03-26] MEDS: DORZOLAMIDE OPTH 2% 10 ML BOTTLE EACHEYE SCH ×2 (09:38→17:37)
[2017-03-26] MEDS: VIT B CMPLX 3/FA/VIT C/BIOTIN 1 TAB TABLET PO SCH (09:39)
[2017-03-26] MEDS: PANTOPRAZOLE 40 MG TABLET.DR PO SCH (09:39)
[2017-03-26] MEDS: DOCUSATE SODIUM 100 MG CAPSULE PO SCH (09:39)
[2017-03-26] MEDS: LACTOBACILLUS RHAMNOSUS GG 1 EACH CAP.SPRINK PO SCH ×2 (09:39→17:37)
[2017-03-26] MEDS: MULTIVIT, IRON, MIN NO. 8, FA 1 TAB TABLET PO SCH (09:39)
[2017-03-26] MEDS: CHOLECALCIFEROL 1,000 UNIT TABLET (VIT D3) PO SCH (09:39)
[2017-03-26] MEDS: OXCARBAZEPINE 150 MG TABLET PO SCH ×2 (09:39→22:05)
[2017-03-26] MEDS: CLOTRIMAZOLE 1% 15 GM TUBE TP SCH ×2 (09:40→18:06)
[2017-03-26] MEDS: RIVAROXABAN 15 MG TABLET PO SCH ×2 (09:44→17:37)
[2017-03-26] MEDS: RIFAXIMIN 550 MG TABLET PO SCH ×2 (09:54→17:37)
[2017-03-26] MEDS ORDERED: PERMETHRIN 5% CRM 60 GM TUBE TP ONE (10:30)
--- NOTE | 2017-03-26 11:50 | NUR ---
Initial DC Plan: Patient resides at [facility] ([address], [place] [address] ). Sister Simran Peoples ([phone]) would like for him to return to the facility. Per case management, patient was on the medical floor and sister requested to try [facility] and patient case coordinator (Jennie) said to follow up with Malou ([phone]) to see if he was accepted. NAGA also notified by patient case coordinator that referral packet was sent to [facility] and [facility] . NAGA attempted to call [facility] but Malou was not in and secretary specialist Agus stated she will leave her the message and she will call the SW back. Naga also followed up with [facility] but Maria Isabel in admissions was not in and secretary specialist iDya noted she will pass the message and will have her call the SW back. NAGA also [facility] and spoke with Argelia in admission who stated that patient's 7 day bedhold expires today and she has to double check if patient will be re-accepted upon discharge. Argelia stated she will call the web content & social media manager back and will let her know. NAGA will follow up. NAGA will work with MD and patient for proper and safe discharge.
--- NOTE | 2017-03-26 12:00 | NUR ---
[id number]: CALLED PHARMACIST BECAUSE ELIMITE CREAM 5% IS SCHEDULED AT 1030 AM BUT IT HAS NOT BEEN BROUGHT UP YET TO THE [facility]. PHARMACIST SAID THEY WILL BE BRING IT SHORTLY AND THAT SHE DOESN'T NEED TO ADJUST THE TIME.
[2017-03-26 16:00] VITALS: BP 118/88
[2017-03-26 18:31] LABS: ALANINE AMINOTRANSFERASE 78 U/L (12-78); ALBUMIN 3.2 g/dL (3.4-5.0); ALKALINE PHOSPHATASE 158 U/L (46-116); ASPARTATE AMINOTRANSFERASE 77 U/L (15-37); BILIRUBIN,TOTAL 0.6 mg/dL (0.2-1.0); CALCIUM, SERUM 8.9 mg/dL (8.5-10.1); CARBON DIOXIDE 24 mmol/L (21-32); CHLORIDE 105 mmol/L (98-107); GLUCOSE 166 mg/dL (74-106); POTASSIUM 4.1 mmol/L (3.5-5.1); SODIUM SERUM 140 mmol/L (136-145); TOTAL PROTEIN, SERUM 7.8 g/dL (6.4-8.2); UREA NITROGEN, BLOOD 20 mg/dL (7-18)
[2017-03-26 20:00] VITALS: BP 121/77
[2017-03-26] MEDS: TAMSULOSIN 0.4 MG CAP.SR.24H PO SCH (22:05)
[2017-03-26] MEDS: QUETIAPINE FUMARATE 25 MG TABLET PO SCH (22:05)
[2017-03-27] MEDS: PANTOPRAZOLE 40 MG TABLET.DR PO SCH (07:30)
[2017-03-27 08:00] VITALS: BP 140/80
[2017-03-27] MEDS: LACTOBACILLUS RHAMNOSUS GG 1 EACH CAP.SPRINK PO SCH ×2 (08:43→17:00)
[2017-03-27] MEDS: RIVAROXABAN 15 MG TABLET PO SCH ×2 (08:45→17:00)
[2017-03-27] MEDS: CHOLECALCIFEROL 1,000 UNIT TABLET (VIT D3) PO SCH (08:45)
[2017-03-27] MEDS: MULTIVIT, IRON, MIN NO. 8, FA 1 TAB TABLET PO SCH (08:45)
[2017-03-27] MEDS: VIT B CMPLX 3/FA/VIT C/BIOTIN 1 TAB TABLET PO SCH (08:46)
[2017-03-27] MEDS: OXCARBAZEPINE 150 MG TABLET PO SCH ×3 (08:46→21:53)
[2017-03-27] MEDS: LACTULOSE 10 G/15 ML UDC (PYXIS) PO SCH (08:46)
[2017-03-27] MEDS: DOCUSATE SODIUM 100 MG CAPSULE PO SCH (08:46)
[2017-03-27] MEDS: prednisoLONE ACETATE 1% SUSP 5 ML BOTTLE EACHEYE SCH (08:56)
[2017-03-27] MEDS: DORZOLAMIDE OPTH 2% 10 ML BOTTLE EACHEYE SCH ×2 (08:56→17:00)
[2017-03-27] MEDS: CLOTRIMAZOLE 1% 15 GM TUBE TP SCH ×2 (09:03→17:00)
[2017-03-27] MEDS: RIFAXIMIN 550 MG TABLET PO SCH ×2 (09:03→17:00)
[2017-03-27 16:00] VITALS: BP 115/52
--- NOTE | 2017-03-27 19:30 | NUR ---
GPS RN NOTE, RECEIVED PATIENT AWAKE AND IN BED, NO S/S COMPLAINTS OF PAIN AT THIS TIME. PATIENT IS DISPLAYING NO S/S OF APPARENT DISTRESS AT THIS TIME. PATIENT BREATHING IS UNLABORED WITH EQUAL RISE AND FALL OF THE CHEST. PATIENT IS ALERT AND ORIENTED X 1-2 ON ROOM AIR WITH A SPO2 95%. PATIENT IS ON ISOLATION FOR SCABIES STRICT ISOLATION PRECAUTIONS UPHELD. PATIENT COMPLIANT WITH MEDICATION WHEN CRUSHED, DEPRESSED, COOPERATIVE, CONFUSED AT TIMES, FORGETFUL, AND NEEDS REORIENTATION. PATIENT DENIES SUICIDE AND HOMICIDAL IDEATIONS AT THIS TIME. PATIENT ASSISTED WITH TURNING AND REPOSITIONING Q2HR AND PRN FOR COMFORT AND CIRCULATION. PATIENT HAS NO NEEDS AT THIS TIME. PATIENT EDUCATED ON THE USE OF THE CALL EASLEY. PATIENT BED SIDE RAILS UP X2 FOR SAFETY, BED IS LOCKED AND LOW WILL CONTINUE TO MONITOR AND MAINTAIN SAFETY.
--- NOTE | 2017-03-27 19:35 | NUR ---
GPS RN NOTE, PATIENT HAS A COMPLAINT OF PAIN AT 3 OUT 10 ON THE PAIN SCALE AND WOULD LIKE MEDICATION AT THIS TIME. PATIENT VITAL SIGNS ARE STABLE. GAVE MOTRIN 400MG PO Q6HR PRN ORDERED. WILL REASSESS FOR PAIN AND I WILL CONTINUE TO MONITOR THIS PATIENT.
[2017-03-27 20:58] VITALS: BP 114/62
[2017-03-27] MEDS: QUETIAPINE FUMARATE 25 MG TABLET PO SCH (21:53)
[2017-03-27] MEDS: TAMSULOSIN 0.4 MG CAP.SR.24H PO SCH (21:53)
[2017-03-28 08:00] VITALS: BP 102/67
[2017-03-28] MEDS: LACTULOSE 10 G/15 ML UDC (PYXIS) PO SCH (08:26)
[2017-03-28] MEDS: PANTOPRAZOLE 40 MG TABLET.DR PO SCH (08:27)
[2017-03-28] MEDS: DOCUSATE SODIUM 100 MG CAPSULE PO SCH (08:27)
[2017-03-28] MEDS: VIT B CMPLX 3/FA/VIT C/BIOTIN 1 TAB TABLET PO SCH (08:27)
[2017-03-28] MEDS: LACTOBACILLUS RHAMNOSUS GG 1 EACH CAP.SPRINK PO SCH ×2 (08:27→16:09)
[2017-03-28] MEDS: QUETIAPINE FUMARATE 25 MG TABLET PO SCH ×2 (08:28→21:14)
[2017-03-28] MEDS: MULTIVIT, IRON, MIN NO. 8, FA 1 TAB TABLET PO SCH (08:28)
[2017-03-28] MEDS: OXCARBAZEPINE 150 MG TABLET PO SCH ×3 (08:28→21:13)
[2017-03-28] MEDS: CHOLECALCIFEROL 1,000 UNIT TABLET (VIT D3) PO SCH (08:28)
[2017-03-28] MEDS: RIVAROXABAN 15 MG TABLET PO SCH ×2 (08:30→16:09)
[2017-03-28] MEDS: DORZOLAMIDE OPTH 2% 10 ML BOTTLE EACHEYE SCH ×2 (08:31→16:14)
[2017-03-28] MEDS: prednisoLONE ACETATE 1% SUSP 5 ML BOTTLE EACHEYE SCH (08:31)
[2017-03-28] MEDS: RIFAXIMIN 550 MG TABLET PO SCH ×2 (08:32→16:11)
[2017-03-28] MEDS: CLOTRIMAZOLE 1% 15 GM TUBE TP SCH ×2 (08:32→16:13)
--- NOTE | 2017-03-28 09:27 | NUR ---
WOUND CARE CONSULT: PT REFUSED SKIN ASSESSMENT.
--- NOTE | 2017-03-28 12:24 | NUR ---
Called Malou from [facility] to follow up on referral that was sent by case management. Malou noted that they cannot accept the patient, as he was there before and they could not manage his behaviors.
--- NOTE | 2017-03-28 12:37 | NUR ---
Hiral refaxed referral to [facility] ([address], [place] [address] ) and spoke with iMchelle in admissions. She stated the referral was misplaced and asked HIRAL to resend it. HIRAL will follow up to see if patient is accepted or not.
--- NOTE | 2017-03-28 12:46 | NUR ---
Hiral called [facility] ([address] [place] [address] ) and followed up with Malou. Malou stated that they will be able to re-accept the patient back and HIRAL verified that they will accept patient even though his bedhold has . Malou stated that she double checked with her DON and said it was fine to re-admit the patient. HIRAL will notify them of when the patient is going to be discharged. HIRAL called the patient's sister Simran Peoples ([phone]) and informed her of this information via voicemail and also stated SW faxed a referral to [facility], as she had requested this when patient was on the medical floor. HIRAL left her call back information.
--- NOTE | 2017-03-28 14:48 | NUR ---
Alejandro Tripp (instant potato processor- [phone]) and Liliana from [facility] ([address] [place] [address]) came to see the patient. They stated they will re-accept the patient as long as he has no behaviors and is calm. They noted that he was sleeping but nursing told her that patient has been calm and cooperative. SW to follow up prior to discharge.
--- NOTE | 2017-03-28 15:22 | NUR ---
[id number] NOTIFIED DR. GAVIN SALGADO THAT PT HAD TWO TREATMENTS OF ELIMITE AND THE LAST TREATMENT WAS ON 03/26/17. DR. SALGADO DISCONTINUE THE ISOLATION.
[2017-03-28 16:03] VITALS: BP 110/69
[2017-03-28 16:04] VITALS: BP 110/69
[2017-03-28 19:41] VITALS: BP 102/53
[2017-03-28 19:53] VITALS: BP 102/53
[2017-03-28] MEDS: TAMSULOSIN 0.4 MG CAP.SR.24H PO SCH (21:14)
[2017-03-29 08:00] VITALS: BP 145/88
[2017-03-29] MEDS: DOCUSATE SODIUM 100 MG CAPSULE PO SCH (08:05)
[2017-03-29] MEDS: LACTOBACILLUS RHAMNOSUS GG 1 EACH CAP.SPRINK PO SCH ×2 (08:05→17:41)
[2017-03-29] MEDS: MULTIVIT, IRON, MIN NO. 8, FA 1 TAB TABLET PO SCH (08:05)
[2017-03-29] MEDS: VIT B CMPLX 3/FA/VIT C/BIOTIN 1 TAB TABLET PO SCH (08:05)
[2017-03-29] MEDS: PANTOPRAZOLE 40 MG TABLET.DR PO SCH (08:05)
[2017-03-29] MEDS: QUETIAPINE FUMARATE 25 MG TABLET PO SCH ×2 (08:06→21:01)
[2017-03-29] MEDS: CHOLECALCIFEROL 1,000 UNIT TABLET (VIT D3) PO SCH (08:06)
[2017-03-29] MEDS: OXCARBAZEPINE 150 MG TABLET PO SCH ×3 (08:06→20:17)
[2017-03-29] MEDS: RIVAROXABAN 15 MG TABLET PO SCH ×2 (08:07→17:42)
[2017-03-29] MEDS: LACTULOSE 10 G/15 ML UDC (PYXIS) PO SCH (08:07)
[2017-03-29] MEDS: RIFAXIMIN 550 MG TABLET PO SCH ×2 (08:07→17:41)
[2017-03-29] MEDS: CLOTRIMAZOLE 1% 15 GM TUBE TP SCH ×2 (08:08→17:43)
[2017-03-29] MEDS: DORZOLAMIDE OPTH 2% 10 ML BOTTLE EACHEYE SCH ×2 (08:08→17:43)
[2017-03-29] MEDS: prednisoLONE ACETATE 1% SUSP 5 ML BOTTLE EACHEYE SCH (08:10)
[2017-03-29 16:18] VITALS: BP 96/60
[2017-03-29 20:00] VITALS: BP 104/64
[2017-03-29] MEDS: TAMSULOSIN 0.4 MG CAP.SR.24H PO SCH (21:01)
[2017-03-30] MEDS: PANTOPRAZOLE 40 MG TABLET.DR PO SCH (07:30)
[2017-03-30] MEDS: CLOTRIMAZOLE 1% 15 GM TUBE TP SCH ×2 (09:00→17:00)
[2017-03-30] MEDS: MULTIVIT, IRON, MIN NO. 8, FA 1 TAB TABLET PO SCH (09:00)
[2017-03-30] MEDS: LACTOBACILLUS RHAMNOSUS GG 1 EACH CAP.SPRINK PO SCH ×2 (09:00→17:24)
[2017-03-30] MEDS: DORZOLAMIDE OPTH 2% 10 ML BOTTLE EACHEYE SCH ×2 (09:00→17:00)
[2017-03-30] MEDS: prednisoLONE ACETATE 1% SUSP 5 ML BOTTLE EACHEYE SCH (09:00)
[2017-03-30] MEDS: VIT B CMPLX 3/FA/VIT C/BIOTIN 1 TAB TABLET PO SCH (09:00)
[2017-03-30] MEDS: CHOLECALCIFEROL 1,000 UNIT TABLET (VIT D3) PO SCH (09:00)
[2017-03-30] MEDS: DOCUSATE SODIUM 100 MG CAPSULE PO SCH (09:00)
[2017-03-30] MEDS: RIFAXIMIN 550 MG TABLET PO SCH ×2 (09:57→17:30)
[2017-03-30] MEDS: QUETIAPINE FUMARATE 25 MG TABLET PO SCH ×3 (09:58→21:20)
[2017-03-30] MEDS: OXCARBAZEPINE 150 MG TABLET PO SCH ×3 (09:58→21:20)
[2017-03-30] MEDS: LACTULOSE 10 G/15 ML UDC (PYXIS) PO SCH (09:59)
[2017-03-30] MEDS: RIVAROXABAN 15 MG TABLET PO SCH ×2 (10:19→17:24)
--- NOTE | 2017-03-30 12:29 | NUR ---
Informed by Dr. Walker that patient will be ready for discharge on Sunday04/02/2017. patient will return to [facility] ([address] [place] [address]; [phone]) and confirmed with Argelia from the facility that patient is able to return when discharged. NAGA to fax updated H&P and med list Sunday morning to fax number ([phone]). Sister Simran Peoples ([phone]) is informed and agreed with the discharge plan for Sunday. SW to notify her if any changes occur.
[2017-03-30 16:00] VITALS: BP 100/65
[2017-03-30 20:00] VITALS: BP 108/67
[2017-03-30] MEDS: TAMSULOSIN 0.4 MG CAP.SR.24H PO SCH (21:20)
[2017-03-31 07:55] VITALS: BP 112/60
[2017-03-31] MEDS: DOCUSATE SODIUM 100 MG CAPSULE PO SCH (08:21)
[2017-03-31] MEDS: LACTOBACILLUS RHAMNOSUS GG 1 EACH CAP.SPRINK PO SCH ×2 (08:21→17:19)
[2017-03-31] MEDS: MULTIVIT, IRON, MIN NO. 8, FA 1 TAB TABLET PO SCH (08:21)
[2017-03-31] MEDS: CHOLECALCIFEROL 1,000 UNIT TABLET (VIT D3) PO SCH (08:22)
[2017-03-31] MEDS: OXCARBAZEPINE 150 MG TABLET PO SCH ×3 (08:22→21:30)
[2017-03-31] MEDS: PANTOPRAZOLE 40 MG TABLET.DR PO SCH (08:22)
[2017-03-31] MEDS: VIT B CMPLX 3/FA/VIT C/BIOTIN 1 TAB TABLET PO SCH (08:22)
[2017-03-31] MEDS: QUETIAPINE FUMARATE 25 MG TABLET PO SCH ×3 (08:22→21:32)
[2017-03-31] MEDS: RIFAXIMIN 550 MG TABLET PO SCH ×2 (08:23→17:19)
[2017-03-31] MEDS: RIVAROXABAN 15 MG TABLET PO SCH ×2 (08:23→17:47)
[2017-03-31] MEDS: LACTULOSE 10 G/15 ML UDC (PYXIS) PO SCH (08:32)
[2017-03-31] MEDS: DORZOLAMIDE OPTH 2% 10 ML BOTTLE EACHEYE SCH ×2 (08:33→17:12)
[2017-03-31] MEDS: prednisoLONE ACETATE 1% SUSP 5 ML BOTTLE EACHEYE SCH (08:33)
[2017-03-31] MEDS: CLOTRIMAZOLE 1% 15 GM TUBE TP SCH ×2 (09:00→17:12)
[2017-03-31 16:08] VITALS: BP 109/66
--- NOTE | 2017-03-31 19:45 | NUR ---
GPS/PEDIATRICS PHYSICIAN; PT NOT IN BED. PT IN THE DAY ROOM IN OTONIEL CHAIR AWAKE, TALKING TO A LADY VISITOR. NO MENTION OF PAIN. WILL CONTINUE TO MONITOR.
[2017-03-31 20:00] VITALS: BP 109/58
[2017-03-31] MEDS: TAMSULOSIN 0.4 MG CAP.SR.24H PO SCH (21:31)
[2017-04-01 06:56] LABS: BASOPHILS % (AUTO) 0.3 % (0.0-2.0); EOSINOPHILS # (AUTO) 0.3 /CMM (0.0-0.7); EOSINOPHILS % (AUTO) 4.2 % (0.0-6.0); HEMATOCRIT 40 % (39-51); HEMOGLOBIN 13.4 g/dL (13.5-17.5); LYMPHOCYTES # (AUTO) 2.2 /CMM (0.8-4.8); LYMPHOCYTES % (AUTO) 36.4 % (20.0-44.0); MEAN CORPUSCULAR HEMOGLOBIN 32 PG (26.0-33.0); MEAN CORPUSCULAR HGB CONC 34 g/dl (31.0-36.0); MEAN CORPUSCULAR VOLUME 94 fL (80-96); MONOCYTES # (AUTO) 0.5 /CMM (0.1-1.30); MONOCYTES % (AUTO) 8.6 % (2.0-12.0); NEUTROPHILS % (AUTO) 50.5 % (43.0-81.0); PLATELET COUNT (AUTO) 231 /CMM (150-450); RDW COEFFICIENT OF VARIATION 14.8 (11.5-15.0); RED BLOOD CELL COUNT(AUTO) 4.24 MIL/uL (4.5-6.0); WHITE BLOOD COUNT (AUTO) 5.9 K/uL (4.3-11.0)
[2017-04-01 07:54] LABS: ALANINE AMINOTRANSFERASE 100 U/L (12-78); ALBUMIN 3.6 g/dL (3.4-5.0); ALKALINE PHOSPHATASE 142 U/L (46-116); ASPARTATE AMINOTRANSFERASE 86 U/L (15-37); BILIRUBIN,TOTAL 0.6 mg/dL (0.2-1.0); CALCIUM, SERUM 9.2 mg/dL (8.5-10.1); CARBON DIOXIDE 30 mmol/L (21-32); CHLORIDE 102 mmol/L (98-107); CREATININE 0.8 mg/dL (0.6-1.3); GLUCOSE 99 mg/dL (74-106); LIPASE 287 U/L (73-393); PHOSPHORUS 3.4 mg/dL (2.5-4.9); POTASSIUM 4.4 mmol/L (3.5-5.1); SODIUM SERUM 139 mmol/L (136-145); TOTAL PROTEIN, SERUM 8.3 g/dL (6.4-8.2); UREA NITROGEN, BLOOD 20 mg/dL (7-18)
[2017-04-01] MEDS: LACTULOSE 10 G/15 ML UDC (PYXIS) PO SCH (09:08)
[2017-04-01] MEDS: OXCARBAZEPINE 150 MG TABLET PO SCH ×3 (09:08→21:29)
[2017-04-01] MEDS: DOCUSATE SODIUM 100 MG CAPSULE PO SCH (09:08)
[2017-04-01] MEDS: LACTOBACILLUS RHAMNOSUS GG 1 EACH CAP.SPRINK PO SCH ×2 (09:08→17:02)
[2017-04-01] MEDS: MULTIVIT, IRON, MIN NO. 8, FA 1 TAB TABLET PO SCH (09:08)
[2017-04-01] MEDS: CHOLECALCIFEROL 1,000 UNIT TABLET (VIT D3) PO SCH (09:14)
[2017-04-01] MEDS: RIFAXIMIN 550 MG TABLET PO SCH ×2 (09:14→17:02)
[2017-04-01] MEDS: PANTOPRAZOLE 40 MG TABLET.DR PO SCH (09:15)
[2017-04-01] MEDS: VIT B CMPLX 3/FA/VIT C/BIOTIN 1 TAB TABLET PO SCH (09:15)
[2017-04-01] MEDS: QUETIAPINE FUMARATE 25 MG TABLET PO SCH ×3 (09:15→21:29)
[2017-04-01] MEDS: RIVAROXABAN 15 MG TABLET PO SCH ×2 (09:17→17:04)
[2017-04-01] MEDS: prednisoLONE ACETATE 1% SUSP 5 ML BOTTLE EACHEYE SCH (09:19)
[2017-04-01] MEDS: DORZOLAMIDE OPTH 2% 10 ML BOTTLE EACHEYE SCH ×2 (09:19→17:02)
[2017-04-01] MEDS: CLOTRIMAZOLE 1% 15 GM TUBE TP SCH ×2 (09:20→17:01)
[2017-04-01 16:26] VITALS: BP 101/68
[2017-04-01 20:00] VITALS: BP 117/67
[2017-04-01] MEDS: TAMSULOSIN 0.4 MG CAP.SR.24H PO SCH (21:28)
[2017-04-02 08:00] VITALS: BP 127/69
[2017-04-02] MEDS: VIT B CMPLX 3/FA/VIT C/BIOTIN 1 TAB TABLET PO SCH (08:22)
[2017-04-02] MEDS: DOCUSATE SODIUM 100 MG CAPSULE PO SCH (08:22)
[2017-04-02] MEDS: LACTULOSE 10 G/15 ML UDC (PYXIS) PO SCH (08:22)
[2017-04-02] MEDS: PANTOPRAZOLE 40 MG TABLET.DR PO SCH (08:22)
[2017-04-02] MEDS: LACTOBACILLUS RHAMNOSUS GG 1 EACH CAP.SPRINK PO SCH (08:22)
[2017-04-02] MEDS: MULTIVIT, IRON, MIN NO. 8, FA 1 TAB TABLET PO SCH (08:23)
[2017-04-02] MEDS: QUETIAPINE FUMARATE 25 MG TABLET PO SCH ×2 (08:23→12:58)
[2017-04-02] MEDS: CHOLECALCIFEROL 1,000 UNIT TABLET (VIT D3) PO SCH (08:23)
[2017-04-02] MEDS: OXCARBAZEPINE 150 MG TABLET PO SCH ×2 (08:23→12:58)
[2017-04-02] MEDS: RIFAXIMIN 550 MG TABLET PO SCH (08:24)
[2017-04-02] MEDS: RIVAROXABAN 15 MG TABLET PO SCH (08:24)
[2017-04-02] MEDS: CLOTRIMAZOLE 1% 15 GM TUBE TP SCH (08:33)
[2017-04-02] MEDS: prednisoLONE ACETATE 1% SUSP 5 ML BOTTLE EACHEYE SCH (08:33)
[2017-04-02] MEDS: DORZOLAMIDE OPTH 2% 10 ML BOTTLE EACHEYE SCH (08:33)
--- NOTE | 2017-04-02 10:02 | NUR ---
Spoke to sister Simran Peoples ([phone]) and reminded her of the patient's discharge for today going back to [facility] ([address] [place] [address]; [phone]). She stated she will inform her sister Balbina but that Balbina is also aware of the discharge for today.
--- NOTE | 2017-04-02 11:15 | NUR ---
[id number]: GAVE BISACODYL SUPPOSITORY 10 MG PO DUE TO CONSTIPATION UPON PT REQUEST AND WILL CONTINUE TO MONITOR FOR EFFECTIVENESS OF MEDICATION.
--- NOTE | 2017-04-02 13:59 | NUR ---
[id number]: PT IS 72 YEARS OLD MALE DISCHARGE TO [facility] AT [address] [place]. [address]; [phone] IN STABLE CONDITION. COMPLIANT WITH MEDICATIONS, COOPERATIVE WITH TREATMENT PLANS. PT DENIES SI/HI. BEHAVIOR IMPROVED, PSYCHIATRIC TX PLANS METS,, MEDICAL TX PLANS DEFERRED FOR CONTINUAL MONITORING.. EDUCATED PT ABOUT AFTER CARE PLAN AND COPY PROVIDED . RETURNED PERSONAL BELONGING TO THE PATIENT. REPORT GIVEN SNF RN. RN VERBALIZED UNDERSTANDING. PICTURE TAKEN. PATIENT HOLISTIC HEALTH PRACTITIONER BY AMBULANCE .
--- NOTE | 2017-04-02 14:26 | NUR ---
Discharge Note: Patient discharged back to [facility] ([address] [place] [address]; [phone]) via [facility]. Patient's sister Simran Peoples ([phone]) is informed and agrees with the discharge plan. Patient denying suicidal/homicidal ideations at the time of discharge. Facilitated information to IDT team who are in agreement with DC arrangement. The multidisciplinary exitcare form was done, printed, signed, and given to the patient.
== END 2017-04-02 13:59 | DRG 885 ==
LOC: GPS 18:40
PROVIDERS: ADMIT Psychiatry & Neurology Psychiatry; ATTEND Nurse Practitioner Acute Care
DX: F29 Unspecified psychosis not due to a substance or known physiological condition (principal); G93.40 Encephalopathy, unspecified; F03.91 Unspecified dementia, unspecified severity, with behavioral disturbance; I82.403 Acute embolism and thrombosis of unspecified deep veins of lower extremity, bilateral; K81.0 Acute cholecystitis; F39 Unspecified mood [affective] disorder; Z86.19 Personal history of other infectious and parasitic diseases; E11.9 Type 2 diabetes mellitus without complications; N40.0 Benign prostatic hyperplasia without lower urinary tract symptoms; Z87.891 Personal history of nicotine dependence; F20.9 Schizophrenia, unspecified
CPT/HCPCS: 36415; 80053-TC; 83690-TC; 83735-TC; 84100-TC; 85025-TC; 87081-TC; J3486